=== PATIENT | male | born 1980 ===

== ENCOUNTER 2020-08-15 22:59 | Emergency (ER) | payer OTHER ==
--- NOTE | 2020-08-15 23:39 | EDM.PDOC ---
ED [facility] GENERAL MEDICAL PROBLEM - General Chief Complaint: Respiratory Problem Stated Complaint: shortness of breath Time Seen by Provider: 08/15/20 23:01 - History of Present Illness INITIAL COMMENTS - FREE TEXT/NARRATIVE: HISTORY AND PHYSICAL: History of present illness: This 40-year-old male with postoperative day 1 from right elbow surgery performed by Dr. Serrano, orthopedics, and [facility], and was at home today when he was laying flat became very short of breath. He has some mild dyspnea on exertion. Denies any lower extremity swelling. This is never happened to him before so he wanted to come and be checked out. He is not on anticoagulation. He does not take other medications. He denies chest pain. No history of DVT or PE. No family history of similar. Drinks alcohol occasionally but is otherwise not using drugs or her tobacco. No other associated signs or symptoms. No other modifying, aggravating or alleviating factors. Review of systems: A 10-point review of systems, other than pertinent positives and negatives as stated per HPI, is otherwise negative. Past medical history: As per history of present illness and as reviewed below otherwise noncontributory. Surgical history: As per history of present illness and as reviewed below otherwise noncontributory. Social history: No reported history of drug or alcohol abuse. Family history: As per history of present illness and as reviewed below otherwise noncontributory. Physical exam: VITAL SIGNS: Reviewed. GENERAL: Very mild distress HEAD: No signs of head trauma. EYES: Pupils are equal. Extraocular motions intact. EARS: Hearing grossly intact. MOUTH: Oropharynx is normal. NECK: No adenopathy, no JVD. CHEST: Chest with clear breath sounds bilaterally. No wheezes, rales, or rhonchi. CARDIAC: Regular rate and rhythm. Normal S1 and S2, without murmurs, gallops, or rubs. VASCULAR: Peripheral pulses normal and equal in all extremities. ABDOMEN: Soft, without detectable tenderness. No sign of distention. No rebound or guarding, and no masses palpated. MUSCULOSKELETAL: Good range of motion of all major joints. Extremities without clubbing, cyanosis or edema. NEUROLOGIC EXAM: Alert and oriented x 3. No focal sensory or motor deficits. Speech normal. Follows commands. PSYCHIATRIC: Mood normal. SKIN: No rash or lesions. Initial Differential Diagnosis & Plan: Shortness of breath: Differential diagnosis includes asthma, COPD, pneumonia, congestive heart failure, anemia, thyroid disease, acidosis, pulmonary embolism, myocardial infarction, sepsis. Most likely diagnoses include PE and CHF. Also could be secondary to sensation of not breathing when lying flat given recent Percocet pills. EKG is reassuring and does not show evidence of acute ischemic event. There is no right heart strain pattern to suggest PE. However given his presentation and recent surgery will check for PE, CHF and draw troponin. Definitive disposition and diagnosis as appropriate pending reevaluation and review of above. - Related Data Allergies Allergy/AdvReac Type Severity Reaction Status Date / Time No Known Allergies Allergy Verified 08/15/20 23:12 Home Meds: Home Meds Acetaminophen/oxyCODONE [Percocet 325-5 MG] 1 each PO Q6HR PRN 08/15/20 [History] Doxycycline [Vibramycin] 100 mg PO BID 7 Days #14 tab 08/16/20 [Rx] cefUROXime axetiL [Cefuroxime] 500 mg PO BID 7 Days #14 tablet 08/16/20 [Rx] ED ROS GENERAL - Review of Systems Review Of Systems: See Below (Noted) ED EXAM, GENERAL - Physical Exam Exam: See Below (Noted) EKG INTERPRETATION EKG Interpretation Comments: 12 lead EKG interpretation Obtained: August 15, 2020 11:29 PM Rhythm: Sinus Rate: 75 [place]: Normal Intervals: Normal ST/T Segments: No acute ischemic changes Interpretation: Sinus Rhythm Course - Vital Signs Last Recorded V/S: Last Vital Signs Temp 97.2 F 08/15/20 23:10 Pulse 69 08/16/20 00:23 Resp 18 08/16/20 00:23 BP 129/73 08/16/20 00:23 Pulse Ox 94 L 08/16/20 00:[address] scan shows atelectasis versus pneumonia. He had recent surger y so there is some chance this could be aspiration. He denies any aspiration reports to his knowledge. I will start him on cefuroxime and doxycycline. I do not feel that he needs clindamycin at this point. He does not have an oxygen requirement. His curb 65 score is negative. Negative troponin. Otherwise doing well. I will have him follow-up with his primary care doctor. My diagnostic impression: 1. Lower lobe 2. Recent general anesthesia for orthopedic procedure Home with cefuroxime 500 mg p.o. twice daily, doxycycline 100 mg p.o. twice daily, and incentive spirometer. - Orders/Labs/Meds Orders: Active Orders 24 hr Category Date Time Status EKG 12 Lead [EKG Documentation Completion] [] STAT Care 08/15/20 23:19 Active Incentive Breathing [RT Incentive Spirometry] [] Care 08/16/20 01:29 Ordered ASDIRECTED Labs: Laboratory Tests 08/15/20 08/15/20 08/15/20 Range/Units 23:25 23:25 23:25 WBC 12.67 H (4.0-11.0) K/uL RBC 5.38 (4.50-5.90) M/uL Hgb 15.2 (13.0-17.0) g/dL Hct 46.2 (38.0-50.0) % MCV 85.9 (80.0-98.0) fL MCH 28.3 (27.0-32.0) pg MCHC 32.9 (31.0-37.0) g/dL RDW Std Deviation 41.1 (28.0-62.0) fl RDW Coeff of Farshad 13 (11.0-15.0) % Plt Count 230 (150-400) K/uL MPV 11.10 (7.40-12.00) fL Neut % (Auto) 86.3 H (48.0-80.0) % Lymph % (Auto) 8.4 L (16.0-40.0) % [place] % (Auto) 5.2 (0.0-15.0) % Eos % (Auto) 0.0 (0.0-7.0) % Baso % (Auto) 0.1 (0.0-1.5) % Neut # (Auto) 10.9 H (1.4-5.7) K/uL Lymph # (Auto) 1.1 (0.6-2.4) K/uL [place] # (Auto) 0.7 (0.0-0.8) K/uL Eos # (Auto) 0.0 (0.0-0.7) K/uL Baso # (Auto) 0.0 (0.0-0.1) K/uL Nucleated RBC % 0.0 /100WBC Nucleated RBCs # 0 K/uL Sodium 139 (136-148) mmol/L Potassium 4.2 (3.5-5.1) mmol/L Chloride 104 (98-107) mmol/L Carbon Dioxide 24.5 (21.0-32.0) mmol/L BUN 16 (7.0-18.0) mg/dL Creatinine 1.0 (0.8-1.3) mg/dL Est Cr Clr Drug Dosing 96.90 mL/min Estimated GFR (MDRD) > 60.0 ml/min Glucose 145 H (74-106) mg/dL Calcium 8.5 (8.5-10.1) mg/dL Total Bilirubin 0.2 (0.2-1.0) mg/dL AST 27 (15-37) IU/L ALT 91 H (14-63) IU/L Alkaline Phosphatase 72 (46-116) U/L Troponin I < 0.050 (0.000-0.056) ng/mL B-Natriuretic Peptide 12 (<100) PG/ML Total Protein 7.3 (6.4-8.2) g/dL Albumin 4.2 (3.4-5.0) g/dL Globulin 3.1 (2.6-4.0) g/dL Albumin/Globulin Ratio 1.4 (0.9-1.6) Meds: Medications Discontinued Medications Generic Name Dose Route Start Last Admin Trade Name Freq PRN Reason Stop Dose Admin Ceftriaxone Sodium 2 gm 08/16/20 01:27 Rocephin IVPUSH 08/16/20 01:28 ONETIME ONE Doxycycline Hyclate 200 mg 08/16/20 01:27 Vibramycin PO 08/16/20 01:28 ONETIME ONE Iopamidol 75 ml 08/16/20 00:49 08/16/20 00:49 Isovue-370 (76%) IVPUSH 08/16/20 00:50 75 ml ONETIME STA Administration Departure - Departure Time of Disposition: 01:31 Disposition: Home, Self-Care 01 Clinical Impression: RLL pneumonia, Atelectasis of right lung - Discharge Information *PRESCRIPTION DRUG MONITORING PROGRAM REVIEWED*: Not Applicable *COPY OF PRESCRIPTION DRUG MONITORING REPORT IN PATIENT [place]: Not Applicable Prescriptions: cefUROXime axetiL [Cefuroxime] 500 mg PO BID 7 Days #14 tablet Doxycycline [Vibramycin] 100 mg PO BID 7 Days #14 tab Instructions: Community-Acquired Pneumonia, Adult Referrals: Rigoberto Pool MD [Primary Care Provider] - Forms: ED Department Discharge Additional Instructions: The following information is given to patients seen in the emergency department who are being discharged to home. This information is to outline your options for follow-up care. We provide all patients seen in our emergency department with a follow-up referral. The need for follow-up, as well as the timing and circumstances, are variable depending upon the specifics of your emergency department visit. If you don't have a primary care physician on staff, we will provide you with a referral. We always advise you to contact your personal physician following an emergency department visit to inform them of the circumstance of the visit and for follow-up with them and/or the need for any referrals to a consulting specialist. The emergency department will also refer you to a specialist when appropriate. This referral assures that you have the opportunity for follow-up care with a specialist. All of these measure are taken in an effort to provide you with optimal care, which includes your follow-up. Thank you for coming to the [facility] urgency department for your care today. It was Dr. Barboza's pleasure to take care of you. Please follow-up with your doctor for your pneumonia. He recently had surgery. Call your surgeon and let him know that you had a diagnosis of pneumonia. Please ask him to check with the anesthesiologist to see if he had an aspiration event. This may need to change her antibiotics. Your anesthesiologist and are not available at the time that you have come to the emergency department. Please take these antibiotics and return if you have fevers, worsening shortness of breath, chest pain, or failure to improve. Your CAT scan showed no evidence of pulmonary embolism. It does show pneumonia and partial lung collapse called atelectasis. This happens when the lung gets infected or from other causes. The incentive spirometer will help you to open this lung up. It is essential that you use it every 2 hours. Your labs for your heart are normal and there is no evidence of heart damage or heart attack. Under all circumstances we always encourage you to contact your private physician who remains a resource for coordinating your care. When calling for follow-up care, please make the office aware that this follow-up is from your recent emergency room visit. If for any reason you are refused follow-up, please contact the [facility] Emergency Department at and asked to speak to the emergency department charge nurse. Sepsis Event Note (ED) - Evaluation Sepsis Screening Result: No Definite Risk - Focused Exam Vital Signs: Vital Signs Temp Pulse Resp BP Pulse Ox 08/16/20 00:23 69 18 129/73 94 L 08/15/20 23:10 97.2 F 88 18 148/81 H 95 - My Orders Last 24 Hours: My Active Orders 08/15/20 23:19 EKG 12 Lead [EKG Documentation Completion] [RC] STAT 08/16/20 01:29 Incentive Breathing [RT Incentive Spirometry] [RC] ASDIRECTED - Assessment/Plan Last 24 Hours: My Active Orders 08/15/20 23:19 EKG 12 Lead [EKG Documentation Completion] [RC] STAT 08/16/20 01:29 Incentive Breathing [RT Incentive Spirometry] [RC] ASDIRECTED
--- NOTE | 2020-08-15 23:56 | CR ---
INDICATION: Atypical chest pain TECHNIQUE: Chest 1 view. COMPARISON: None FINDINGS: Cardiovascular and mediastinum: Heart size and vasculature are normal in caliber and appearance. Mediastinum is within normal limits. Lungs and pleural space: Elevation right hemidiaphragm. Lungs are clear. No sign of infiltrate or mass. No sign of pleural effusion. No pneumothorax. Bones and soft tissues: No significant findings. IMPRESSION: Unremarkable chest. Dictated by Mckinley Echavarria MD @ 08/15/2020 11:53:35 PM Dictated by: Mckinley Echavarria MD @ 08/15/2020 23:55:27 (Electronically Signed)
[2020-08-16 00:09] LABS: BLOOD UREA NITROGEN,BUN 16 mg/dL (7.0-18.0); CARBON DIOXIDE,CO2 24.5 mmol/L (21.0-32.0); CHLORIDE,CL 104 mmol/L (98-107); GLUCOSE RANDOM 145 mg/dL (74-106); POTASSIUM,K 4.2 mmol/L (3.5-5.1); SODIUM,NA 139 mmol/L (136-148)
[2020-08-16] MEDS ORDERED: Iopamidol 755 Mg/ML 100 ML Bottle IVPUSH STA (00:49)
--- NOTE | 2020-08-16 01:15 | CT ---
INDICATION: Shortness of breath TECHNIQUE: CT chest PE was acquired with 75 cc Isovue 370 intravenous contrast. COMPARISON: None. FINDINGS: Heart and vasculature: Examination mildly to moderately degraded by respiratory motion. No definite pulmonary artery filling defects. Thoracic aorta is normal in caliber. No pericardial effusion Lungs and pleural: Mild elevation right hemidiaphragm. Mild mosaic attenuation pattern. Focal consolidation within the posterior segment of the right lower lobe. Lymph nodes/mediastinum: No mediastinal, hilar, or axillary adenopathy. Chest wall: No masses. Upper abdomen: Diffusely decreased density of the liver with focal sparing adjacent to the gallbladder fossa. Bones: Unremarkable for age. IMPRESSION: 1. No evidence of pulmonary embolus. 2. Focal consolidation within the posterior segment of the right lower lobe consistent with partial atelectasis versus pneumonia. 3. Fatty infiltration of the liver. Please note that all CT scans at this facility use dose modulation, iterative reconstruction, and/or weight-based dosing when appropriate to reduce radiation dose to as low as reasonably achievable. Dictated by Curtis Callahan MD @ Aug 16 2020 1:09AM Signed by Dr. Curtis Callahan @ Aug 16 2020 1:13AM
[2020-08-16] MEDS ORDERED: Doxycycline 100 MG Cap PO ONE (01:27)
[2020-08-16] MEDS ORDERED: cefTRIAXone 1 GM Vial IVPUSH ONE (01:27)
[2020-08-16] MEDS ORDERED: cefTRIAXone 2 GM in Premix Bag 1 BAG IV ONE (01:36)
== END 2020-08-16 02:20 | disposition home or self-care (01) ==
LOC: MW.ED 22:59
DX: J18.9 Pneumonia, unspecified organism (principal); J98.11 Atelectasis; Z98.890 Other specified postprocedural states
CPT/HCPCS: 36415; 71045; 71275; 80053; 83880; 84484; 85025; 93005; 96365; 99285; A9270; J0696; Q9967